=== PATIENT | female | born 1990 | race Caucasian/White ===

== ENCOUNTER 2020-09-03 08:26 | Outpatient (REF) | payer OTHER, SELFPAY ==
[2020-09-04 09:12] LABS: BV Int Neg Control Negative (Negative); BV Int Pos Control Positive (Positive)
== END 2020-09-03 08:27 | disposition home or self-care (01) ==
LOC: HO.LAB 08:26
PROVIDERS: PCP Family Medicine; Visit Provider Advanced Practice Midwife
DX: Z01.419 Encounter for gynecological examination (general) (routine) without abnormal findings (principal); N89.8 Other specified noninflammatory disorders of vagina; N94.10 Unspecified dyspareunia
CPT/HCPCS: 87480; 87510; 87660

== ENCOUNTER 2020-09-05 13:58 | Outpatient (REF) | payer OTHER, SELFPAY ==
--- NOTE | 2020-09-05 14:04 | US_ITS ---
EXAMINATION:US transvaginal, US pelvic complete CLINICAL INFORMATION: Reason for Exam N94.10 - Unspecified dyspareunia COMPARISON: No priors available. LMP: 3 months ago FINDINGS: UTERUS: The uterus is anteverted. Size: 8.7 x 3.3 x 4.6 cm. Uterine mass: There is no uterine mass. Cervix: Grossly unremarkable. Endometrium: No ultrasound evidence of endometrial lesion. endometrial thickness measures 0.6 cm ADNEXA: Normal Right ovary: Normal in size. Left ovary: Normal in size. Doppler exam: Normal Doppler flow identified in both ovaries. FREE FLUID: Trace amount of free fluid. OTHER FINDINGS: None US/US pelvic complete IMPRESSION: Normal pelvic ultrasound.
--- NOTE | 2020-09-05 14:04 | US_ITS ---
EXAMINATION:US transvaginal, US pelvic complete CLINICAL INFORMATION: Reason for Exam N94.10 - Unspecified dyspareunia COMPARISON: No priors available. LMP: 3 months ago FINDINGS: UTERUS: The uterus is anteverted. Size: 8.7 x 3.3 x 4.6 cm. Uterine mass: There is no uterine mass. Cervix: Grossly unremarkable. Endometrium: No ultrasound evidence of endometrial lesion. endometrial thickness measures 0.6 cm ADNEXA: Normal Right ovary: Normal in size. Left ovary: Normal in size. Doppler exam: Normal Doppler flow identified in both ovaries. FREE FLUID: Trace amount of free fluid. OTHER FINDINGS: None US/US transvaginal IMPRESSION: Normal pelvic ultrasound.
== END 2020-09-05 13:59 | disposition home or self-care (01) ==
LOC: HO.HMGCX 13:58
PROVIDERS: Visit Provider Advanced Practice Midwife
DX: N94.10 Unspecified dyspareunia (principal)
CPT/HCPCS: 76830; 76856

== ENCOUNTER → 2020-09-12 15:51 | Outpatient (BNVA) | payer OTHER, SELFPAY | PROVIDERS: PCP Family Medicine; Visit Provider Advanced Practice Midwife | DX: Z76.89 Persons encountering health services in other specified circumstances (principal) ==